=== PATIENT | female | born 1990 | race African-American/Black ===

== ENCOUNTER 2017-09-14 04:17 | Inpatient (IN) | payer OTHER, SELFPAY ==
[2017-09-14] MEDS ORDERED: AMPICILLIN SOD 2 GM in APPROPRIATE DILUENT 20 ML IV (08:07)
[2017-09-14] MEDS ORDERED: miSOPROStol 25 MCG 1/4 TAB (S0191) PV (08:15)
[2017-09-14 08:38] LABS: MEAN CORPUSCULAR HEMOGLOBIN 31.7 pg (27.0-33.0); MEAN CORPUSCULAR HGB CONC 34.3 g/dl (32.0-36.5); MEAN CORPUSCULAR VOLUME 92.3 fl (80.0-96.0); PLATELET COUNT, AUTOMATED 184 10^3/uL (150-450); RED BLOOD COUNT 3.79 10^6/uL (4.00-5.40); RED CELL DISTRIBUTION WIDTH 14.3 % (11.5-14.5); WHITE BLOOD COUNT 8.3 10^3/uL (4.0-10.0)
[2017-09-14] MEDS: miSOPROStol 25 MCG 1/4 TAB (S0191) PO ×4 (10:42→22:15)
[2017-09-14] MEDS ORDERED: AMPICILLIN SOD 1 GM in APPROPRIATE DILUENT 10 ML IV ×2 (12:15→22:45)
[2017-09-14] MEDS: LACTATED RINGER'S 1000 ML IV (16:30)
[2017-09-14] MEDS: LR 1,000 ML IV ×2 (16:30→16:34)
[2017-09-14] MEDS: OXYTOCIN DRIP 30 UNITS in APPROPRIATE DILUENT 1 EA IV (18:36)
[2017-09-14] MEDS ORDERED: FENTANYL 2MCG/ML ROPIVACAINE 0.2% IN 0.9% NACL 200ML IVBAG As Ordered (18:49)
[2017-09-14] MEDS: AMPICILLIN SOD 2 GM in APPROPRIATE DILUENT 20 ML IV (19:55)
[2017-09-14] MEDS: AZITHROMYCIN INJ 500 MG, VIAL MATE ADAPTER 1 EACH in D5W 250 ML IV (22:15)
[2017-09-14] MEDS: BICITRA 30ML SOLN UDC PO (22:31)
[2017-09-14] MEDS ORDERED: PHENYLephrine HCL 500 MCG/5 ML (100MCG/ML) SYRINGE (J2370) As Ordered (23:08)
[2017-09-14] MEDS ORDERED: OXYTOCIN INJ 10 UNITS/ML VIAL (J2590) As Ordered ×2 (23:16)
[2017-09-14] MEDS ORDERED: ONDANSETRON 4MG/2ML VIAL (J2405) As Ordered (23:17)
[2017-09-14] MEDS ORDERED: MORPHINE PRES-FREE INJ 10 MG/10 ML VIAL (J2274) As Ordered (23:22)
[2017-09-14] MEDS ORDERED: MEPERIDINE 50 MG/ML 1ML VIAL (J2175) As Ordered (23:22)
[2017-09-14] MEDS ORDERED: NALOXONE INJ 0.4 MG/1 ML VIAL (J2310) IV ×2 (23:40)
[2017-09-14] MEDS ORDERED: METOCLOPRAMIDE INJ 10MG/2ML VIAL (J2765) IV (23:40)
[2017-09-14] MEDS ORDERED: ONDANSETRON 4MG/2ML VIAL (J2405) IV (23:40)
[2017-09-15 00:01] LABS: CORD GAS ABE A -3.8; CORD GAS ABE V -4.7; CORD GAS HCO3 A 23.9 MEQ/L; CORD GAS HCO3 V 20.2 MEQ/L; CORD GAS O2 SAT V 73.8 %; CORD GAS PCO2 A 53.3 mmHg; CORD GAS PCO2 V 37.3 mmHg; CORD GAS PH A 7.269 UNITS; CORD GAS PH V 7.352 UNITS; CORD GAS PO2 A 13.4 mmHg; CORD GAS PO2 V 31.4 mmHg; CORD GAS SBC A 19.5 MEQ/L; CORD GAS SBC V 20.1 MEQ/L; CORD GAS TCO2 A 25.5 MEQ/L; CORD GAS TCO2 V 21.4 MEQ/L
[2017-09-15] MEDS: LR 1,000 ML IV ×3 (00:30→14:29)
[2017-09-15] MEDS ORDERED: NALBUPHINE HCL 10 MG/ML AMP (J2300) IV (00:30)
[2017-09-15] MEDS ORDERED: fentaNYL 100 MCG/2 ML INJECTION (J3010) IV (00:30)
[2017-09-15] MEDS ORDERED: ONDANSETRON 4MG/2ML VIAL (J2405) IV (00:30)
[2017-09-15] MEDS ORDERED: MORPHINE 10 MG/ML 1ML VIAL (J2270) IV (00:30)
[2017-09-15] MEDS ORDERED: RHOGAM 300 MCG (1500 IU) INJ (J2790) IM (02:00)
[2017-09-15] MEDS ORDERED: PERCOCET 5MG/325MG TAB PO (02:00)
[2017-09-15] MEDS ORDERED: MEASLES,MUMPS,RUBELLA VACCINE INJ (MMR-II) (90707) SC (02:00)
[2017-09-15] MEDS: KETOROLAC 30 MG/ML VIAL (J1885) IV ×4 (02:51→20:10)
[2017-09-15] MEDS: AMPICILLIN SOD/SULBACTAM SOD 3 GM in D5W MINI-BAG PLUS 100 ML IV ×4 (02:51→20:12)
[2017-09-15] MEDS: NALBUPHINE HCL 10 MG/ML AMP (J2300) IV ×2 (03:41→08:15)
[2017-09-15] MEDS: PRENATAL VITAMINS CHEWABLE TABLET PO (07:58)
[2017-09-15] MEDS: DOCUSATE SODIUM 100 MG CAP PO ×2 (07:58→20:09)
[2017-09-15] MEDS: PERCOCET 5MG/325MG TAB PO (22:03)
[2017-09-16] MEDS: IBUPROFEN 800 MG TAB PO ×2 (03:10→17:32)
[2017-09-16] MEDS: miSOPROStol 25 MCG 1/4 TAB (S0191) PO ×12 (03:53→20:41)
[2017-09-16 07:03] LABS: HEMATOCRIT 29.7 % (36.0-47.0); HEMOGLOBIN 10.2 g/dl (12.0-15.5); MEAN CORPUSCULAR HEMOGLOBIN 32.2 pg (27.0-33.0); MEAN CORPUSCULAR HGB CONC 34.3 g/dl (32.0-36.5); MEAN CORPUSCULAR VOLUME 93.7 fl (80.0-96.0); PLATELET COUNT, AUTOMATED 187 10^3/uL (150-450); RED BLOOD COUNT 3.17 10^6/uL (4.00-5.40); RED CELL DISTRIBUTION WIDTH 14.8 % (11.5-14.5); WHITE BLOOD COUNT 12.8 10^3/uL (4.0-10.0)
[2017-09-16] MEDS: PRENATAL VITAMINS CHEWABLE TABLET PO (10:26)
[2017-09-16] MEDS: DOCUSATE SODIUM 100 MG CAP PO ×2 (10:26→20:27)
[2017-09-16] MEDS: PERCOCET 5MG/325MG TAB PO (10:27)
[2017-09-16] MEDS: LR 1,000 ML IV ×4 (19:09→19:11)
[2017-09-17] MEDS: IBUPROFEN 800 MG TAB PO ×2 (01:24→10:05)
[2017-09-17] MEDS: miSOPROStol 25 MCG 1/4 TAB (S0191) PO (03:19)
[2017-09-17] MEDS: DOCUSATE SODIUM 100 MG CAP PO (10:04)
[2017-09-17] MEDS: PRENATAL VITAMINS CHEWABLE TABLET PO (10:04)
== END 2017-09-17 11:55 | disposition home or self-care (01) | DRG 766 ==
LOC: M LDO 04:17 → M OBS 09-15 02:05 → M LDI 08:32
PROVIDERS: Obstetrics & Gynecology
PROC: 10D00Z1 Extraction of Products of Conception, Low, Open Approach (ICD-10-PCS; principal; 2017-09-15 22:47)
PROC: 3E0DXGC Introduction of Other Therapeutic Substance into Mouth and Pharynx, External Approach (ICD-10-PCS; 2017-09-15 22:47)
PROC: 0UB00ZZ Excision of Right Ovary, Open Approach (ICD-10-PCS; 2017-09-15 22:47)
DX: O76 Abnormality in fetal heart rate and rhythm complicating labor and delivery (principal); Z37.0 Single live birth; Z3A.40 40 weeks gestation of pregnancy; O48.0 Post-term pregnancy; O99.820 Streptococcus B carrier state complicating pregnancy; D27.9 Benign neoplasm of unspecified ovary; O26.893 Other specified pregnancy related conditions, third trimester